=== PATIENT | female | born 1940 | race Caucasian/White ===

== ENCOUNTER 2021-10-08 11:52 | Emergency (ER) | payer MEDICARE, BC ==
[~2021-10-08] VITALS: Ht 167.6 cm; Wt 65.0 kg
[2021-10-08 12:23] LABS: HEMATOCRIT 41.1 % (37.0-47.0); HEMOGLOBIN 13.5 g/dl (12.0-16.0); IMMATURE GRANULOCYTES 0.1 % (0.0-5.0); MEAN CELL VOLUME 93.2 fL CALC (80.0-100.0); MEAN CORPUSCULAR HGB 30.6 pG CALC (26.0-32.0); MEAN CORPUSCULAR HGB CONC 32.8 g/dL CAL (32.0-36.0); NEUT# 5.33 thou/uL (2.00-7.15); RED BLOOD COUNT 4.41 mill/uL (4.20-5.60); RED CELL DISTRI WIDTH 12.3 % (11.5-15.5)
[2021-10-08 12:45] LABS: ALBUMIN 4.8 g/dL (3.2-5.0); BILIRUBIN, TOTAL 0.8 mg/dL (0.0-1.4); CREATININE 1.3 mg/dL (0.5-1.0); POTASSIUM 4.3 mmol/l (3.5-5.1); TOTAL PROTEIN 8.4 g/dL (6.3-8.2)
[2021-10-08 12:50] LABS: PROTHROMBIN TIME 10.7 SECONDS (9.0-12.5)
[2021-10-08 13:13] VITALS: BP 173/79
== END 2021-10-08 13:34 | disposition home or self-care (01) ==
LOC: ED 11:52
DX: R04.0 Epistaxis (principal); I10 Essential (primary) hypertension; I48.91 Unspecified atrial fibrillation; I25.10 Atherosclerotic heart disease of native coronary artery without angina pectoris